=== PATIENT | female | born 1990 | race Two or more races ===

== ENCOUNTER 2021-11-17 23:18 | Emergency (ER) | payer OTHER ==
[~2021-11-17] VITALS: Ht 162.6 cm; Wt 84.4 kg
[2021-11-18] MEDS ORDERED: ZITHROMAX200 MG PO (00:30)
[2021-11-18] MEDS ORDERED: ULTRAM50 MG PO (02:33)
== END 2021-11-18 02:42 ==
LOC: ER 23:18
DX: S20.219A Contusion of unspecified front wall of thorax, initial encounter (principal); S80.12XA Contusion of left lower leg, initial encounter; V49.9XXA Car occupant (driver) (passenger) injured in unspecified traffic accident, initial encounter; Y93.9 Activity, unspecified; Y92.413 State road as the place of occurrence of the external cause; Y99.9 Unspecified external cause status; Z88.6 Allergy status to analgesic agent